=== PATIENT | male | born 1950 | race African-American/Black ===

== ENCOUNTER 2019-09-03 21:07 | Emergency (ER) | payer OTHER ==
[~2019-09-03] VITALS: Ht 175.3 cm; Wt 99.3 kg
[~2019-09-03 21:07] MED LIST: ACET-9528 PO; ASPI81EC98 PO; LIP80 PO; LISI30TA6 PO; METF1000 PO; METO50TE2 PO
[2019-09-03 21:21] VITALS: BP 141/80
--- NOTE | 2019-09-03 21:28 | NUR ---
PT TAKEN TO BED 7
--- NOTE | 2019-09-03 21:39 | NUR ---
69 YO MALE CO SOB X3D. PT STATES THAT THE SOB IS NOT EXTREME TO THE POINT WHERE HE CANNOT BREATHE. STATES THAT HE ALSO HAS A THROBBING HEADACHE. HISTORY OF ABNORMAL CARDIAC RHYTHYMS AND HAS A DEFIB PLACED. PT VSS AT THIS TIME, ON MONITOR IN BED
[2019-09-03] MEDS ORDERED: KETOROLAC 30 MG/ML VIAL IVP ONE (21:45)
--- NOTE | 2019-09-03 21:56 | NUR ---
X-Ray at bedside.
--- NOTE | 2019-09-03 21:58 | NUR ---
RAD AT BEDSIDE
--- NOTE | 2019-09-03 21:59 | NUR ---
Dr. Howard examining patient.
[2019-09-03 22:24] LABS: EOSINOPHILS # (AUTO) 0.2 K/uL (0-0.4); LYMPHOCYTES # (AUTO) 1.1 K/uL (2.0-11.5); MONOCYTES # (AUTO) 0.3 K/uL (0.8-1.0)
[2019-09-03 22:53] LABS: BASOPHILS % (AUTO) 0.5 % (0.0-2.0); EOSINOPHILS % (AUTO) 4.1 % (0.0-4.0); HEMOGLOBIN 11.7 g/dL (12.0-18.0); LYMPHOCYTES % (AUTO) 25.1 % (20.5-51.1); MEAN CORPUSCULAR HEMOGLOBIN 29 pg (27-31); MEAN CORPUSCULAR HGB CONC 33 g/dL (33-37); MEAN CORPUSCULAR VOLUME 88.1 fL (80-94); MONOCYTES % (AUTO) 7.1 % (1.7-9.3); NEUTROPHILS # (AUTO) 2.7 K/uL (1.8-7.7); NEUTROPHILS % (AUTO) 63.2 % (42.2-75.2); PLATELET COUNT (AUTO) 167 K/uL (140-450); RED BLOOD CELL COUNT(AUTO) 3.98 MIL/uL (4.20-6.10); RED CELL DISTRIBUTION WIDTH 18.3 % (11.6-13.7); WHITE BLOOD COUNT (AUTO) 4.3 K/uL (4.8-10.8)
--- NOTE | 2019-09-03 23:00 | NUR ---
PT STATES THAT HE IS STILL SLIGHTY SOB, BUT SYMPTOMS HAVE IMPROVED. NADR TO TORADOL.
[2019-09-03 23:04] LABS: ALBUMIN 4.4 g/dL (3.4-5.0); ANION GAP 11.3 (8-16); CARBON DIOXIDE 29.3 mmol/L (21-32); POTASSIUM 3.6 mmol/L (3.5-5.1); TOTAL BILIRUBIN 0.7 mg/dL (0.0-1.0)
[2019-09-03 23:33] VITALS: BP 132/79
--- NOTE | 2019-09-04 00:26 | NUR ---
DR NUNN AT BEDSIDE
--- NOTE | 2019-09-04 01:42 | NUR ---
Patient discharged with v/s stable. Written and verbal after care instructions given and explained. Patient verbalized understanding. Ambulatory with steady gait. All questions addressed prior to discharge. Advised to follow up with PMD.
== END 2019-09-04 01:42 | disposition home or self-care (01) ==
LOC: MED 21:07
DX: R53.1 Weakness (principal); E11.9 Type 2 diabetes mellitus without complications; I50.9 Heart failure, unspecified; Z95.0 Presence of cardiac pacemaker; Z79.899 Other long term (current) drug therapy; Z79.82 Long term (current) use of aspirin; Z79.84 Long term (current) use of oral hypoglycemic drugs
CPT/HCPCS: 36415; 71045; 80053; 84484; 85025; 93005; 96374; 99285; J1885; Q0092